=== PATIENT | male | born 1955 | race Caucasian/White ===

== ENCOUNTER 2017-03-03 07:05 | Day surgery (SDC) | payer OTHER ==
[~2017-03-03] VITALS: Ht 175.3 cm; Wt 109.0 kg
[2017-03-03] MEDS ORDERED: METOPROLOL PO (07:44)
[2017-03-03] MEDS ORDERED: LASIX PO (07:44)
[2017-03-03] MEDS ORDERED: ASPI-535 PO (07:44)
[2017-03-03] MEDS ORDERED: NEXIUM PO (07:44)
[2017-03-03] MEDS ORDERED: POTASSIUM PO (07:44)
[2017-03-03] MEDS ORDERED: DIAZEPAM PO (07:44)
[2017-03-03] MEDS ORDERED: ELEQUIS PO (07:44)
[2017-03-03 07:50] VITALS: Ht 175.3 cm; Wt 109.0 kg
[2017-03-03] MEDS ORDERED: PROPOFOL 60 ML ONE (08:04)
[2017-03-03] MEDS ORDERED: LIDOCAINE 100 MG SYRINGE ONE (08:05)
[2017-03-03 08:12] VITALS: BP 132/73; PULSE 66; RESP 18
--- NOTE | 2017-03-03 09:03 | OPPN ---
Date/Time of Note Date/Time of Note DATE: 03/03/17 TIME: 09:00 Proc Note GI Procedure Date 03/03/17 Indication: screening/surveillance, diagnostic Pre-procedure Diagnosis r/o gerd barretts Post-procedure Diagnosis mod gerd gastritis h hernia hemorrhoids Procedure Performed: Endoscopy, Colonoscopy Surgeon see signature line Print Room Worker none Anesthesia Type: MAC Anesthesiologist: KAMRYN WILLAMS MD Tourniquet Time none EBL none Transfusion required none Biopsy 1: gastric and esophageal bx Grafts/Implants none Tubes/Drains none Complication(s) none Disposition: PACU Procedure Description egd and colonoscopy done with mac gerd gastritis h bhernia hemorrhoids noted see dict MARINO RAMSEY MD Mar 03, 2017 09:03
[2017-03-03 09:31] VITALS: BP 149/80; RESP 20
--- NOTE | 2017-03-03 18:05 | GILP ---
DATE OF PROCEDURE: PROCEDURE: Esophagogastroduodenoscopy. PREOPERATIVE DIAGNOSIS: Patient presenting with history of chronic heartburn, rule out peptic ulcer disease, rule out gastroesophageal reflux disease, Heller's esophagus. POSTOPERATIVE DIAGNOSES: 1. Moderate degree of reflux esophagitis, Garvin classification 2 to 3. Rule out Heller esop hagus. 2. Fundal gastritis. DESCRIPTION OF PROCEDURE: After informed written consent was obtained, the patient was asked to lie on the left lateral side. Intravenous anesthesia was given by anesthesiologist, Dr. Ferreira. When the patient became somnolent, the Olympus video upper endoscope was introduced into the oropharynx, then into the esophagus. Esophagus appeared to show multiple erosions above the GE junction indicat ing possible Garvin classification B for reflux esophagitis, rule out Heller esophagus and bec ause of this multiple biopsies were obtained. Hiatal hernia was noted. Scope at this time was adva nced into the stomach. Stomach showed evidence of erythema in the fundus in a localized area, but n o ulcers, no neoplasm noted. Antrum and mid body appeared normal. Duodenum was examined, which dexter eared to show normal mucosal pattern. Scope at this time was withdrawn. Biopsies were done from th e antrum, the lesser curvature and the fundus to rule out H. pylori infection. Scope at this time w as withdrawn and no additional abnormalities detected and the procedure was terminated. PLAN: Recommend proton pump inhibitor therapy, Nexium 40 mg a day. Meanwhile, wait for the patholo gy report. Dictated By: MARINO BOOTH/JAZMINE Conf#: [id number] DID#: [id number]
--- NOTE | 2017-03-06 08:04 | GILP ---
DATE OF PROCEDURE: NAME OF PROCEDURE: Colonoscopy. PREOPERATIVE DIAGNOSIS: Screening colonoscopy to rule out colon polyps. POSTOPERATIVE DIAGNOSES: 1. Suboptimal preparation. 2. Minimal external hemorrhoids. DESCRIPTION OF PROCEDURE: After informed written consent was obtained, the patient was asked to lie on the left lateral side. Intravenous anesthesia was given by anesthesiologist, Dr. Ferreira. When the patient became somnolent, the Olympus video colonoscope was introduced into the rectum and scope was advanced all the way to the cecum. There a large amount of liquid greenish blackish liquid sto ol was noted all along the colon. No major lesion noted. Cecum could not be examined. Small polyp s cannot be excluded. On the way out, the above findings were confirmed except minimal hemorrhoids also were noted. At this time, scope was withdrawn and the procedure was terminated. PLAN: Recommend repeat colonoscopy after a couple of months. Dictated By: MARINO BOOTH/JAZMINE Conf#: [id number] DID#: [id number]
== END 2017-03-03 10:54 | disposition home or self-care (01) ==
LOC: GIL 07:05
PROVIDERS: ATTEND Internal Medicine Gastroenterology
DX: Z12.11 Encounter for screening for malignant neoplasm of colon (principal); K64.4 Residual hemorrhoidal skin tags; K21.0 Gastro-esophageal reflux disease with esophagitis; K29.50 Unspecified chronic gastritis without bleeding; E66.01 Morbid (severe) obesity due to excess calories; Z68.35 Body mass index [BMI] 35.0-35.9, adult
CPT/HCPCS: 43239; 45378; 88305; 88312; 88313; J2001; Z7610

== ENCOUNTER 2017-06-07 06:07 | Day surgery (SDC) | END 2017-06-07 13:36 | disposition home or self-care (01) ==